=== PATIENT | male | born 1975 | race Hispanic/Latino ===

== ENCOUNTER → 2018-12-10 | Outpatient (CLI) | payer BC ==
--- NOTE | 2018-12-10 11:09 | Diagnostic Imaging Report ---
EXAM: US TESTICULAR DATE: 12/10/2018 9:13 AM INDICATION:Testicular pain COMPARISON: None FINDINGS: Grayscale and color flow Doppler ultrasound of the scrotal contents was performed. Spectral waveform analysis of testicular blood flow is also used. Right testicle: 4.8 x 2.6 x 3.7 cm. Homogeneous echotexture. No testicular mass. Normal arterial and venous blood flow. Small hydrocele. No varicocele. Right epididymis: Epididymal head measures 1.5 x 0.7 x 0.7 cm. No hyperemia or mass. Left testicle: 4.6 x 2.7 x 3.3 cm. Homogeneous echotexture. No testicular mass. Normal arterial and venous blood flow. Small hydrocele. Varicocele is noted. Left epididymis: Epididymal head measures 0.9 x 0.7 x 0.9 cm. No hyperemia or mass. Scrotum: No asymmetric thickening of the scrotal sac. IMPRESSION: 1. Symmetric appearance of the testes with no mass. Normal arterial and venous blood flow. 2. Small bilateral hydroceles. Left varicocele. 3. No epididymal hyperemia or mass. Signed by: Dr. Jori Perez M.D. on 12/10/2018 11:05 AM
== END ==
LOC: US 09:04
PROVIDERS: ATTEND Family Medicine
DX: N50.812 Left testicular pain (principal); N50.811 Right testicular pain; N43.3 Hydrocele, unspecified; I86.1 Scrotal varices
CPT/HCPCS: 76870